=== PATIENT | male | born 1945 | race Caucasian/White ===

== ENCOUNTER 2016-09-01 07:28 | Day surgery (SDC) | payer MEDICARE, OTHER ==
--- NOTE | ~2016-09-01 | EGD ---
EGD REPORT [facility] [address] [address] NAME: TYRESE JEFFERSON : [birth year] STATUS : REG [facility]#: [id number] AGE: 71 ADM/REG DATE : 09/01/16 MR#: [id number] REPORT SERV DATE: 09/01/16 DICTATED BY: DATE: REPORT STATUS : Draft TRANSCRIBED BY: [employer] DATE: 09/01/16 [facility] Patient Name: Tyrese Jefferson Date of : 1945 Attending MD: BREA MCNEILL MD Procedure Date No Time: 09/01/2016 Procedure: Colonoscopy Indications: Screening for colorectal malignant neoplasm Referring MD: Nikki Proctor Medicines: Monitored Anesthesia Care Complications: No immediate complications. Procedure: Pre-Anesthesia Assessment: - ASA Grade Assessment: III - A patient with severe systemic disease. After I obtained informed consent, the scope was passed under direct vision. Throughout the procedure, the patient's blood pressure, pulse, and oxygen saturations were monitored continuously. The PCF [id number] was introduced through the anus and advanced to the cecum, identified by appendiceal orifice and ileocecal valve. The colonoscopy was performed without difficulty. The patient tolerated the procedure well. The quality of the bowel preparation was excellent. Findings: The perianal and digital rectal examinations were normal. Multiple small and large-mouthed diverticula were found in the entire colon. Two sessile polyps were found in the cecum. The polyps were 4 to 10 mm in size. These polyps were removed with a cold snare. Resection and retrieval were complete. Four sessile polyps were found in the transverse colon. The polyps were 4 to 8 mm in size. These polyps were removed with a cold snare. Resection and retrieval were complete. Six sessile polyps were found in the recto-sigmoid colon, in the sigmoid colon and in the descending colon. The polyps were small in size. These polyps were removed with a cold snare. Resection and retrieval were complete. No other significant abnormalities were identified in a careful examination of the remainder of the colon. There is no endoscopic evidence of inflammation, mass, ulcerations or angioectasia in the entire colon. Internal hemorrhoids were found during retroflexion and were Grade I (internal hemorrhoids that do not prolapse). No additional abnormalities were found on retroflexion. EGD REPORT [place] [id number] [facility] [place]. [address] NAME: TYRESE JEFFERSON : [birth year] STATUS : REG [facility]#: [id number] AGE: 71 ADM/REG DATE : 09/01/16 MR#: [id number] REPORT SERV DATE: 09/01/16 DICTATED BY: DATE: REPORT STATUS : Draft TRANSCRIBED BY: [employer] DATE: 09/01/16 Impression: - Diverticulosis in the entire examined colon. - Two 4 to 10 mm polyps in the cecum. Resected and retrieved. - Four 4 to 8 mm polyps in the transverse colon. Resected and retrieved. - Six small polyps at the recto-sigmoid colon, in the sigmoid colon and in the descending colon. Resected and retrieved. - Internal hemorrhoids. Recommendation: - Patient has a contact number available for emergencies. The signs and symptoms of potential delayed complications were discussed with the patient. Return to normal activities tomorrow. Written discharge instructions were provided to the patient. - High fiber diet. - Discharge patient to home. - Continue present medications. - Await pathology results. - Repeat colonoscopy in 3 years for surveillance. Procedure Code(s): --- Professional --- 02976, Colonoscopy, flexible, proximal to splenic flexure; with removal of tumor(s), polyp(s), or other lesion(s) by snare technique Diagnosis Code(s): --- Professional --- K64.0, First degree hemorrhoids K57.30, Diverticulosis of large intestine without perforation or abscess without bleeding D12.7, Benign neoplasm of rectosigmoid junction D12.5, Benign neoplasm of sigmoid colon D12.4, Benign neoplasm of descending colon D12.3, Benign neoplasm of transverse colon D12.0, Benign neoplasm of cecum Z12.11, Encounter for screening for malignant neoplasm of colon CPT copyright 2013 [employer]. All rights reserved. The codes documented in this report are preliminary and upon medical photographer review may be revised to meet current compliance requirements. BREA MCNEILL MD EGD REPORT [facility] [address] [address] NAME: TYRESE JEFFERSON : [birth year] STATUS : REG [facility] PAT#: [id number] AGE: 71 ADM/REG DATE : 09/01/16 MR#: [id number] REPORT SERV DATE: 09/01/16 DICTATED BY: DATE: REPORT STATUS : Draft TRANSCRIBED BY: [employer] DATE: 09/01/16 09/01/2016 10:13 AM This report has been signed electronically. Number of Addenda: 0 Note Initiated On: 09/01/2016 9:30 AM Scope Withdrawal Time 0 hours 14 minutes [address] [place], [place] [address]oro [address]
[~2016-09-01 07:28] MED LIST: AMARYL1 MG PO; CARDCD120 PO; CARDCD240 PO; COUMADIN4 MG PO; DIGITEK0.125 MG PO; FLOMAX4 PO; FLONASE NAS; GLUCPH PO; IMOD PO; LAN25 PO; LOPID6 PO; LORT7 PO; NEUR300 PO; PACERONE100 MG PO; PR25 PO; PRADAXA150 MG PO; PRADAXA75 MG PO; PRAVACHOL40 MG PO; PRIN5 PO; SOMATAB PO; TAFIN75C PO; TYLENOL 8 HR650 MG PO; VISINE TEARS15 ML OPH; VYTORIN 10/80 T1 TAB PO; XANAX1 MG PO
== END 2016-09-01 23:59 | disposition home health service (06) ==
LOC: DMU 07:28
PROVIDERS: Internal Medicine Gastroenterology
PROC: 0DBN8ZZ Excision of Sigmoid Colon, Via Natural or Artificial Opening Endoscopic (ICD-10-PCS; 2016-09-01)
PROC: 0DBL8ZZ Excision of Transverse Colon, Via Natural or Artificial Opening Endoscopic (ICD-10-PCS; 2016-09-01)
PROC: 0DBH8ZZ Excision of Cecum, Via Natural or Artificial Opening Endoscopic (ICD-10-PCS; principal; 2016-09-01 09:00)
DX: Z12.11 Encounter for screening for malignant neoplasm of colon (principal); D12.0 Benign neoplasm of cecum; D12.3 Benign neoplasm of transverse colon; K63.5 Polyp of colon; K57.30 Diverticulosis of large intestine without perforation or abscess without bleeding; K64.0 First degree hemorrhoids; I10 Essential (primary) hypertension; E78.00 Pure hypercholesterolemia, unspecified; I48.91 Unspecified atrial fibrillation; E11.9 Type 2 diabetes mellitus without complications; Z80.0 Family history of malignant neoplasm of digestive organs; Z88.5 Allergy status to narcotic agent; Z87.891 Personal history of nicotine dependence; Z98.890 Other specified postprocedural states
CPT/HCPCS: 82962; 88305